=== PATIENT | female | born 1990 | race Caucasian/White ===

== ENCOUNTER 2019-11-23 06:45 | Emergency (ER) | payer OTHER ==
[~2019-11-23] VITALS: Ht 167.6 cm; Wt 105.2 kg
[~2019-11-23 06:45] MED LIST: OMEPRAZOLE20 MG PO; PRENATAL-FOLIC1 EACH
== END 2019-11-23 09:05 | disposition home or self-care (01) ==
LOC: ED 06:45
DX: O03.4 Incomplete spontaneous abortion without complication (principal)
CPT/HCPCS: 36415; 76830; 76856; 81001; 84702; 96372; 99284-25; J1885